=== PATIENT | male | born 1985 | race Caucasian/White ===

== ENCOUNTER → 2017-11-05 | Outpatient (CLI) | payer OTHER ==
[~2017-11-05] MED LIST: Dilantin 100 m100 MG PO; LAMO100 PO; MECL25 PO; PHENY100ER PO
== END ==
LOC: LAB 10:33
DX: Z48.816 Encounter for surgical aftercare following surgery on the genitourinary system (principal); Z98.52 Vasectomy status

== ENCOUNTER → 2020-11-11 | Outpatient (CLI) | payer OTHER ==
[~2020-11-11] MED LIST changes: +FLAGYL500 M2 PO; -LAMO100 PO; +LEVO750 PO; +SUBVENITE PO
[2020-11-11 15:42] LABS: Alanine Aminotransfer (ALT/SGP 48 U/L (12-78); Albumin, Blood 4.2 g/dL (3.4-5.0); Albumin/Globulin Ratio 1.1 (0.8-1.8); Alk Phos 82 U/L (50-136); Anion Gap 4 mmol/L (6-16); Aspartate Aminotrans (AST/SGOT 20 U/L (12-37); Bilirubin, Total 0.6 mg/dL (0.1-1.0); Blood Urea Nitrogen 13 mg/dL (8-24); Bun/Creatinine Ratio 15.3 (12.0-20.0); CHOL/HDL RATIO 3.3; CO2, Blood 29 mmol/L (21-32); Calcium, Blood 9.4 mg/dL (8.5-10.1); Chloride, Blood 104 mmol/L (98-108); Cholesterol 232 mg/dL (50-200); Creatinine, Blood 0.85 mg/dL (0.60-1.20); Globulin, Blood 3.7 g/dL (2.2-4.0); Glomerular Filtration Rate >60 (60-); Glucose, Blood 92 mg/dL (70-99); HDL Cholesterol 70 mg/dL (>39); LDL/HDL RATIO 2.1; Low Density Lipoprotein Chol 149 mg/dL (0-110); Potassium, Blood 4.6 mmol/L (3.5-5.5); Sodium, Blood 137 mmol/L (136-145); Total Protein, Blood 7.9 g/dL (6.4-8.2); Triglycerides 63 mg/dL (30-140); Very Low Density Lipoprot Chol 12 mg/dL (6-28)
== END | disposition home or self-care (01) ==
LOC: LAB 10:55 → LAB SHORT 10:55
PROVIDERS: Family Medicine
DX: G40.909 Epilepsy, unspecified, not intractable, without status epilepticus (principal); Z82.49 Family history of ischemic heart disease and other diseases of the circulatory system
CPT/HCPCS: 80053; 80061

== ENCOUNTER 2021-03-19 11:05 | Inpatient (IN) | payer OTHER ==
[~2021-03-19] VITALS: Ht 175.3 cm; Wt 114.2 kg
[~2021-03-19 11:05] MED LIST changes: -FLAGYL500 M2 PO; -LEVO750 PO
[2021-03-19 11:47] LABS: BASOPHILS ABSOLUTE AUTO 0.04 K/mm3 (0.00-0.23); BASOPHILS PERCENT AUTO 0 % (0-2); EOSINOPHILS ABSOLUTE AUTO 0.02 K/mm3 (0.00-0.68); EOSINOPHILS PERCENT AUTO 0 % (0-6); Hematocrit 45.2 % (37.0-53.0); Hemoglobin 15.6 g/dL (13.5-17.5); IMMATURE GRAN ABSOLUTE AUTO 0.09 K/mm3 (0.00-0.10); IMMATURE GRAN PERCENT AUTO 1 % (0-1); LYMPHOCYTES ABSOLUTE AUTO 1.15 K/mm3 (0.84-5.20); LYMPHOCYTES PERCENT AUTO 6 % (21-46); MONOCYTES ABSOLUTE AUTO 1.27 K/mm3 (0.16-1.47); MONOCYTES PERCENT AUTO 7 % (4-13); Mean Corpuscular HGB 28.4 pg (26.0-34.0); Mean Corpuscular HGB Conc 34.5 g/dL (31.5-36.5); Mean Corpuscular Volume 82 fL (80-100); Mean Platelet Volume 10.4 fL (9.1-12.4); NEUTROPHILS ABSOLUTE AUTO 15.37 K/mm3 (1.96-9.15); NEUTROPHILS PERCENT AUTO 86 % (41-73); Platelet Count 274 K/mm3 (150-400); RDW Coefficient Variation 12.5 % (11.7-14.2); RDW Standard Deviation 37.6 fL (35.1-46.3); White Blood Cell Count 17.94 K/mm3 (4.00-11.30)
[2021-03-19 12:11] LABS: Alanine Aminotransfer (ALT/SGP 31 U/L (12-78); Albumin, Blood 3.6 g/dL (3.4-5.0); Albumin/Globulin Ratio 0.8 (0.8-1.8); Alk Phos 76 U/L (50-136); Anion Gap 2 mmol/L (6-16); Aspartate Aminotrans (AST/SGOT 28 U/L (12-37); Bilirubin, Total 0.9 mg/dL (0.1-1.0); Blood Urea Nitrogen 8 mg/dL (8-24); CO2, Blood 28 mmol/L (21-32); Calcium, Blood 8.9 mg/dL (8.5-10.1); Chloride, Blood 103 mmol/L (98-108); Globulin, Blood 4.4 g/dL (2.2-4.0); Glomerular Filtration Rate >60 (60-); Glucose, Blood 100 mg/dL (70-99); Potassium, Blood 4.7 mmol/L (3.5-5.5); Sodium, Blood 133 mmol/L (136-145)
--- NOTE | 2021-03-19 16:48 | NUR ---
PT ARRIVED TO THE ROOM AT 1648. PT IS ALERT ORIENTED AND INDEPENDENT. HE COMPLAINS OF LOWER ABD CRAMPING/PAIN. WILL CONTINUE TO MONITOR.
--- NOTE | 2021-03-19 19:55 | NUR ---
SHIFT SUMMARY PAIN HAS BEEN MANAGED WITH MORPHINE SINCE ARRIVAL TO THE ROOM. PT IS ALERT, ORIENTED AND INDEPENDENT. WAITING FOR DR. PALENCIA TO ROUND, PT REMAINS NPO AT THIS TIME. REPORT GIVEN TO SARAY WISE.
[2021-03-19 20:13] LABS: Bilirubin, Urine Neg (Neg); Blood, Urine Neg (Neg); Glucose Qualitative, Urine Neg (Neg); Ketones, Urine Neg (Neg); Leukocyte Esterase, Urine Neg (Neg); Nitrite, Urine Neg (Neg); Protein, Urine Neg (Neg); Source, Urine Voided; Urobilinogen, Urine NORM (Normal)
[2021-03-19 20:16] LABS: Appearance, Urine Clear (Clear); Color, Urine Yellow (P-Yellow)
--- NOTE | 2021-03-20 04:09 | NUR ---
COMMANDER POLICE RESERVES SUMMARY NO ACUTE CHANGES THIS SHIFT. PT AAOX4 AND INDEPENDENT IN ROOM. MEDICATED FOR PAIN X1 WITH 2 MG IV MORPHINE WITH GOOD PAIN RELIEF. PT HAS BEEN NPO THROUGH THE NIGHT PER RECOMMENDATION FROM DR PALENCIA. ON MAINTENANCE IV FLUIDS. VSS, WILL CONTINUE TO MONITOR.
[2021-03-20 04:54] LABS: BASOPHILS ABSOLUTE AUTO 0.07 K/mm3 (0.00-0.23); BASOPHILS PERCENT AUTO 0 % (0-2); EOSINOPHILS ABSOLUTE AUTO 0.05 K/mm3 (0.00-0.68); EOSINOPHILS PERCENT AUTO 0 % (0-6); Hematocrit 41.7 % (37.0-53.0); Hemoglobin 13.9 g/dL (13.5-17.5); IMMATURE GRAN ABSOLUTE AUTO 0.06 K/mm3 (0.00-0.10); IMMATURE GRAN PERCENT AUTO 0 % (0-1); LYMPHOCYTES ABSOLUTE AUTO 1.76 K/mm3 (0.84-5.20); LYMPHOCYTES PERCENT AUTO 11 % (21-46); MONOCYTES ABSOLUTE AUTO 1.25 K/mm3 (0.16-1.47); MONOCYTES PERCENT AUTO 8 % (4-13); Mean Corpuscular HGB 27.8 pg (26.0-34.0); Mean Corpuscular HGB Conc 33.3 g/dL (31.5-36.5); Mean Corpuscular Volume 83 fL (80-100); Mean Platelet Volume 10.9 fL (9.1-12.4); NEUTROPHILS ABSOLUTE AUTO 12.97 K/mm3 (1.96-9.15); NEUTROPHILS PERCENT AUTO 80 % (41-73); Platelet Count 268 K/mm3 (150-400); RDW Coefficient Variation 12.6 % (11.7-14.2); RDW Standard Deviation 38.3 fL (35.1-46.3); White Blood Cell Count 16.16 K/mm3 (4.00-11.30)
[2021-03-20 05:27] LABS: Anion Gap 4 mmol/L (6-16); Blood Urea Nitrogen 10 mg/dL (8-24); Bun/Creatinine Ratio 10.2 (12.0-20.0); CO2, Blood 26 mmol/L (21-32); Calcium, Blood 8.5 mg/dL (8.5-10.1); Chloride, Blood 105 mmol/L (98-108); Creatinine, Blood 0.98 mg/dL (0.60-1.20); Glomerular Filtration Rate >60 (60-); Glucose, Blood 86 mg/dL (70-99); Potassium, Blood 4.1 mmol/L (3.5-5.5); Sodium, Blood 135 mmol/L (136-145)
--- NOTE | 2021-03-20 08:30 | NUR ---
PT PLEASANT. STATES PAIN MUCH IMPROVED. A/O TALKATIVE, JOYA ABOUT HUNTING. H/R REG, NO MURMER NOTED. NO TELE. LUNGS CLEAR, RESP EASY, UNLABORED. ON R.A. BT HYPO, LAST BM YEST. VOIDS INDEPENDANTLY TO BATHROOM. PT NPO AT THIS TIME. BED IN LOW POSITION, CALL LITE IN REACH, CALLS APPROP.
--- NOTE | 2021-03-20 13:42 | NUR ---
PT TATA LIQUID DIET. DENIES ANY INCREASE OF PAIN IN ABD. PER DR PALENCIA ADVANCE DIET FOR DINNER TO LOW FIBER DIET
--- NOTE | 2021-03-20 18:51 | NUR ---
PT QUITE PLEASNT TODAY, NO C/O PAIN. LIQUID DIET THIS AM AND NOON TATA WELL. THAIS MEAL LOW FIBER TATA WELL TO THIS POINT. DR SUGGESTS IF CONTINUES LIKELY TO GO HOME TOMORROW. NO NEW CONCERNS NOTED. BED IN LOW POSITIOIN, CALLLITE IN REACH, CALLS APPROP. INDEPENDANT
--- NOTE | 2021-03-21 05:13 | NUR ---
CONTRACTING OFFICER SUMMARY NO ACUTE CHANGES THIS SHIFT. PT AAOX4 AND INDEPENDENT IN ROOM. NO BM'S TONIGHT BUT PT REPORTS PASSING FLATUS FREQUENTLY. PT STATES HE DOESN'T HAVE PAIN UNLESS HE MOVES AROUND AND EVEN THEN IT IS VERY MINIMAL AND DOES NOT REQUIRE PAIN MEDS. VSS, WILL CONTINUE TO MONITOR.
[2021-03-21 08:30] LABS: Hemoglobin 15.3 g/dL (13.5-17.5); Mean Corpuscular HGB 28.1 pg (26.0-34.0); Mean Corpuscular Volume 83 fL (80-100); Mean Platelet Volume 10.2 fL (9.1-12.4); Platelet Count 298 K/mm3 (150-400); RDW Coefficient Variation 12.6 % (11.7-14.2); RDW Standard Deviation 37.6 fL (35.1-46.3); Red Blood Cell Count 5.45 M/mm3 (4.30-5.90); White Blood Cell Count 8.78 K/mm3 (4.00-11.30)
[2021-03-21] MEDS ORDERED: LEVO750 PO (11:23)
[2021-03-21] MEDS ORDERED: FLAGYL500 M2 PO (11:23)
--- NOTE | 2021-03-21 13:55 | NUR ---
PT DISCHARGED FROM THE UNIT. IV REMOVED. DISCHARGE INSTRUCTIONS REVIEWED. MEDICATIONS SENT TO PHARMACY BY PHYSICIAN. PT AMBULATED OFF THE UNIT PER HIS REQUEST.
== END 2021-03-21 13:44 | disposition home or self-care (01) | DRG 392 ==
LOC: ER 11:05 → MEDS 15:04
PROVIDERS: Emergency Medicine; Family Medicine; Surgery; ADMIT Hospitalist
DX: K57.20 Diverticulitis of large intestine with perforation and abscess without bleeding (principal); G40.909 Epilepsy, unspecified, not intractable, without status epilepticus
CPT/HCPCS: 36415; 74177; 80048; 80053; 81003; 85025; 85027; 96365-59; 96375; 99285-25; A9270; J2270; J2405; J2543; J7030; J7120; Q9967

== ENCOUNTER → 2022-01-25 | Outpatient (CLI) | payer OTHER ==
[~2022-01-25] MED LIST changes: +FLAGYL500 M2 PO; +LEVO750 PO
[2022-01-25 19:48] LABS: Adenovirus F 40/41 Not Detected (NOT DETECT); Astrovirus Not Detected (NOT DETECT); Campylobacter Sp Not Detected (NOT DETECT); Cryptosporidium Not Detected (NOT DETECT); Cyclospora Cayetanensis Not Detected (NOT DETECT); E. Coli O157 Not Detected (NOT DETECT); Entamoeba Histolytica Not Detected (NOT DETECT); Enteroaggregative E. coli-EAEC Not Detected (NOT DETECT); Enteropathogenic E. coli-EPEC Not Detected (NOT DETECT); Enterotoxigenic E. coli-ETEC Not Detected (NOT DETECT); Giardia Lamblia Not Detected (NOT DETECT); Norovirus GI/GII Not Detected (NOT DETECT); Plesiomonas Shigelloides Not Detected (NOT DETECT); Rotavirus A Not Detected (NOT DETECT); Salmonella Sp Not Detected (NOT DETECT); Sapovirus Not Detected (NOT DETECT); Shiga Toxin-prod E. coli-STEC Not Detected (NOT DETECT); Shigella/Enteroin E. coli-EIEC Not Detected (NOT DETECT); Vibrio Cholerae Not Detected (NOT DETECT); Vibrio Sp Not Detected (NOT DETECT); Yersinia Enterocolitica Not Detected (NOT DETECT)
== END | disposition home or self-care (01) ==
LOC: LAB 14:02
PROVIDERS: Family Medicine
DX: R19.7 Diarrhea, unspecified (principal)
CPT/HCPCS: 87507

== ENCOUNTER 2024-10-06 10:37 | Day surgery (SDC) | payer OTHER ==
[~2024-10-06] VITALS: Ht 175.3 cm; Wt 124.4 kg
[~2024-10-06 10:37] MED LIST changes: +Lactated Ringer's 1,000 ML IV ONE
[2024-10-06] MEDS ORDERED: CeFAZolin Sodium 2,000 MG VIAL ONE (10:54)
[2024-10-06] MEDS ORDERED: NS 50 ML IV ONE (10:55)
[2024-10-06] MEDS ORDERED: Tranexamic Acid 100 ML IV ONE (10:55)
[2024-10-06] MEDS ORDERED: propofoL 20 ML IV ONE (11:07)
[2024-10-06] MEDS ORDERED: FentaNYL Citrate 50 MCG/ML 2 ML Injection ONE (11:07)
[2024-10-06] MEDS ORDERED: Midazolam HCl 1MG / ML 2ML Vial ONE (11:07)
[2024-10-06] MEDS ORDERED: Rocuronium Bromide 10 MG/ML 5ML Injection IV ONE (11:08)
[2024-10-06] MEDS ORDERED: CeFAZolin Sodium 1000 mg Vial ONE (11:11)
[2024-10-06] MEDS ORDERED: Lactated Ringer's 1,000 ML IV ONE ×2 (11:19→14:35)
[2024-10-06] MEDS ORDERED: Ropivacaine 0.5% HCL/PF 5 MG/ML 30ML Vial ONE (12:13)
--- NOTE | 2024-10-06 12:33 | NUR ---
10/06/24 1233 Patty Haynes TIME OUT DONE PRIOR TO BLOCK BY DR TANG. PT TOLERATED BLOCK WELL.
[2024-10-06] MEDS ORDERED: Dexamethasone Sod Phos 10 MG/ML 1ML VIAL ONE (13:52)
[2024-10-06] MEDS ORDERED: Ondansetron HCl 2 MG / ML 2ML Vial ONE (13:52)
--- NOTE | 2024-10-06 14:06 | NUR ---
10/06/24 1406 Dana Malagon 1 MG OF EPI ADDED TO FIRST 3 BAGS OF LR FOR IRREGATION 2 X SAFETY STRAPS 4X GEL PADS (1X UNDER EACH SAFETY STRAP, 1X UNDER COCCYX, 1X BEWTEEN RIGHT ARM AND ARM BOARD) STANDARD FOAM FACE MASK
[2024-10-06] MEDS ORDERED: EPINEPhrine HCl 1 MG/ML 1ML Amp XX ONE (14:11)
[2024-10-06 16:18] VITALS: BP 134/86
--- NOTE | 2024-10-06 17:23 | NUR ---
10/06/24 1723 Mallory Norris 1645: PATIENT EDUCATED ON USE OF POLAR PACK, DIGITAL RANGE OF MOTION TO OPERATIVE ARM, INCENTIVE SPIROMETER, AND PROVIDED INSTRUCTION SHEETS. 1650: PATIENT WOULD PREFER TO PUT HIS BUTTON UP SHIRT OVER THE POLAR PACK AND SLING RATHER THAN DRESS AND THEN REPLACE THE POLAR PACK AND SLING.
== END 2024-10-06 17:08 | disposition home or self-care (01) ==
LOC: ORSCSDS 10:37
PROVIDERS: Orthopaedic Surgery Sports Medicine
PROC: 0LM24ZZ Reattachment of Left Shoulder Tendon, Percutaneous Endoscopic Approach (ICD-10-PCS; principal; 2024-10-06 12:30)
PROC: 0RNK4ZZ Release Left Shoulder Joint, Percutaneous Endoscopic Approach (ICD-10-PCS; principal; 2024-10-06 12:30)
PROC: 0RQK4ZZ Repair Left Shoulder Joint, Percutaneous Endoscopic Approach (ICD-10-PCS; principal; 2024-10-06 12:30)
DX: M75.112 Incomplete rotator cuff tear or rupture of left shoulder, not specified as traumatic (principal); S43.432A Superior glenoid labrum lesion of left shoulder, initial encounter; M75.42 Impingement syndrome of left shoulder; G40.909 Epilepsy, unspecified, not intractable, without status epilepticus; J45.909 Unspecified asthma, uncomplicated; Z79.899 Other long term (current) drug therapy
CPT/HCPCS: C1713; J0171; J0690; J1100; J2250; J2405; J2704; J2795; J3010; J7120